=== PATIENT | female | born 1980 | race African-American/Black ===

== ENCOUNTER 2024-02-04 23:25 | Emergency (ER) | payer OTHER ==
[2024-02-04 23:38] VITALS: BP 134/84; PULSE 59; RESP 18; TEMP 97.6; BMI 23.1
== END 2024-02-05 00:02 | disposition left against medical advice (07) ==
LOC: JER 23:25
DX: T24.211A Burn of second degree of right thigh, initial encounter (principal); T24.212A Burn of second degree of left thigh, initial encounter; T25.221A Burn of second degree of right foot, initial encounter; T25.222A Burn of second degree of left foot, initial encounter; X12.XXXA Contact with other hot fluids, initial encounter
CPT/HCPCS: 99281-25